=== PATIENT | male | born 1965 | race Caucasian/White ===

== ENCOUNTER 2019-12-11 09:40 | Outpatient (CLI) | payer BC ==
[2019-12-12 15:09] LABS: SARS-CoV-2 MS2 Positive; SARS-CoV-2 N Gene Negative; SARS-CoV-2 S Gene Negative; SARS-CoV-2 by NAA Not Detected (NotDetected); SARS-CoV-2 orf1ab Negative
--- NOTE | 2019-12-14 20:53 | EKG ---
Test Reason : Blood Pressure : / mmHG Vent. Rate : 061 BPM Atrial Rate : 061 BPM P-R Int : 180 ms QRS Dur : 076 ms QT Int : 418 ms P-R-T Axes : 049 088 027 degrees QTc Int : 420 ms Normal sinus rhythm Normal ECG No previous ECGs available Confirmed by Deo HARRIS ([id number]) on 12/14/2019 8:53:03 PM Referred By: BONITA Confirmed By:Deo HARRIS
== END 2019-12-11 09:41 | disposition home or self-care (01) ==
LOC: LABBT 09:40
PROVIDERS: ATTEND Specialist
DX: Z01.818 Encounter for other preprocedural examination (principal); K80.20 Calculus of gallbladder without cholecystitis without obstruction; Z20.828 Contact with and (suspected) exposure to other viral communicable diseases
CPT/HCPCS: 87635; 93005; 93010; U0003

== ENCOUNTER 2019-12-15 06:50 | Day surgery (SDC) | payer BC ==
--- NOTE | 2019-12-12 09:39 | HP ---
HISTORY OF PRESENT ILLNESS: Maik Wolf is a 54-year-old male, patient followed by Dr. Valle. He has had recent CBC, comp met, which are normal. Ultrasound of the gallbladder reveals gallstones, fatty liver, bile duct 4 mm. He has been having epigastric pain, back, radiation associated with nausea and vomiting, often occurring after spicy foods and becoming more frequent. Plan is for laparoscopic video cholecystectomy. The patient has been training for a marathon, but has not been feeling well and canceled that. He has been running frequently to this date. MEDICATIONS: None. ALLERGIES: NONE. SOCIAL HISTORY: Tobacco, none. Alcohol, rarely. PAST SURGICAL HISTORY: Noncontributory. HOSPITALIZATIONS: None. REVIEW OF SYSTEMS: Noncontributory ten-point. FAMILY HISTORY: Negative. PHYSICAL EXAMINATION: VITAL SIGNS: 166 pounds, 69 inches, 24 BMI. 131/93, 74, 97 degrees. HEAD, EARS, EYES, NOSE, AND THROAT: Unremarkable. LUNGS: Clear to auscultation. CARDIAC: Regular rate and rhythm without murmur or gallop. ABDOMEN: Soft, nontender. EXTREMITIES: No ankle edema. SKIN: Nonjaundiced. Sclerae nonicteric. LYMPH: No lymphadenopathy in neck, axilla, groins. NEUROLOGIC: Intact. No deficits. ASSESSMENT AND PLAN: Chronic cholecystitis, cholelithiasis. Recommend laparoscopic video cholecystectomy. Risks of infection, bleeding, visceral and biliary injury, open procedure discussed. Questions answered. Job ID: [id number]
[2019-12-12 13:10] VITALS: BMI 24.2
[2019-12-15] MEDS ORDERED: Acetaminophen 500 MG TAB ONE (07:48)
[2019-12-15] MEDS ORDERED: Ketorolac Tromethamine 30 MG/ML VIAL ONE (07:48)
[2019-12-15] MEDS ORDERED: Bupivacaine PF 0.5% 30 ML VIAL ONE (08:37)
[2019-12-15] MEDS ORDERED: Lidocaine 1% w/Epinephrine 1:100K 20 ML VIAL ONE (08:37)
[2019-12-15] MEDS ORDERED: Fentanyl 100 MCG/2 ML VIAL ONE ×2 (08:46→10:52)
[2019-12-15] MEDS ORDERED: Midazolam HCl 2 mg/2 ml Vial ONE ×2 (08:46→09:03)
--- NOTE | 2019-12-15 11:16 | OP ---
DATE OF PROCEDURE: 12/15/2019 PREOPERATIVE DIAGNOSES: Chronic cholecystitis, cholelithiasis, gallbladder outlet obstruction. POSTOPERATIVE DIAGNOSES: Chronic cholecystitis, cholelithiasis, gallbladder outlet obstruction. PROCEDURE PERFORMED: Laparoscopic video cholecystectomy. ANESTHESIA: General, local 0.5% Marcaine 30 mL mixed with 1% Xylocaine with epinephrine 20 mL, 30 mL volume mixture used. DESCRIPTION OF PROCEDURE: The patient was taken to the operating room, where under general anesthesia, abdomen was clipped of hair, prepared with ChloraPrep and draped in routine fashion. Local anesthetic mixture was infiltrated into the skin and subcutaneous tissue about each port site. Infraumbilical incision made and pneumoperitoneum to 15 mmHg obtained with a Veress needle, replaced with a 5 port, video laparoscope inserted. Right subxiphoid incision was made and 11 port placed, right subcostal incision made in midclavicular and anterior axillary line. The 5 port was placed. The gallbladder had adhesions of omentum and the gallbladder wall was thickened and outlet obstructed with gallstones. Liver appeared to be normal. Fundus grasped at the cephalad, infundibulum grasped, retracted laterally. Cystic artery and duct dissected free. Critical view obtained. Cystic artery and duct doubly clipped proximally and divided. Gallbladder dissected free from the liver bed, obtaining good hemostasis prior to division of the final peritoneal attachments. Gallbladder and contents and stones removed. Hemostasis gained with cautery, FloSeal, Ucrly. Good hemostasis noted. Irrigant and pneumoperitoneum evacuated. Subxiphoid fascia was approximated with 0 Vicryl, skin with subdermal 4-0 Monocryl, and [place] glue applied. Job ID: [id number]
[2019-12-15] MEDS ORDERED: HYDROcodone/Acetaminophen 5/325 mg Tablet ONE (11:45)
[2019-12-15] MEDS ORDERED: Rocuronium Bromide 10 MG/ML (10ML VIAL) ONE (12:04)
[2019-12-15] MEDS ORDERED: PROPOFOL 200 MG/20 ML VIAL ONE (12:04)
[2019-12-15] MEDS ORDERED: Dexamethasone 20 MG/5 ML VIAL ONE (12:04)
[2019-12-15] MEDS ORDERED: Glycopyrrolate 0.2 MG/ML 5 ML SYRINGE ONE (12:04)
[2019-12-15] MEDS ORDERED: Lidocaine 1% PF 5 ML VIAL ONE (12:04)
== END 2019-12-15 12:40 | disposition home or self-care (01) ==
LOC: SDC 06:50
PROVIDERS: ATTEND Specialist
PROC: 0FT44ZZ Resection of Gallbladder, Percutaneous Endoscopic Approach (ICD-10-PCS; principal; 2019-12-15)
DX: K80.11 Calculus of gallbladder with chronic cholecystitis with obstruction (principal); K76.0 Fatty (change of) liver, not elsewhere classified; Z79.899 Other long term (current) drug therapy
CPT/HCPCS: 88304; J0690; J1100; J1885; J2250; J2704; J3010; S0020